=== PATIENT | male | born 1940 | race African-American/Black ===

== ENCOUNTER → 2017-10-11 | Outpatient (CLI) | payer MEDICARE, MEDICAID | END | disposition home or self-care (01) | LOC: MRI 07:37 | PROVIDERS: ATTEND Internal Medicine Nephrology | DX: M16.0 Bilateral primary osteoarthritis of hip (principal); M51.36 Other intervertebral disc degeneration, lumbar region; M48.061 Spinal stenosis, lumbar region without neurogenic claudication | CPT/HCPCS: 72148; 72195 ==

== ENCOUNTER → 2019-07-02 | Outpatient (CLI) | payer MEDICARE, MEDICAID | END | disposition home or self-care (01) | LOC: RAD 10:30 | PROVIDERS: ATTEND Internal Medicine Nephrology | DX: J44.9 Chronic obstructive pulmonary disease, unspecified (principal); I51.7 Cardiomegaly | CPT/HCPCS: 71046 ==